=== PATIENT | female | born 1935 | race African-American/Black ===

== ENCOUNTER 2017-07-24 05:26 | Day surgery (SDC) | payer OTHER ==
[~2017-07-24] VITALS: Ht 152.4 cm; Wt 79.4 kg
[~2017-07-24 05:26] MED LIST: AMLO2.5T45 PO; GLIP5TAB12 PO; LOSA100T14 PO; METF500T4 PO; SIMV20TA6 PO
[2017-07-24] MEDS ORDERED: CYCLOPENTOLATE HCL 1% OPHTH DROPS 2ML RIGHTEYE ONE (05:40)
[2017-07-24] MEDS ORDERED: TROPICAMIDE 1% OPHTH DROPS 15ML RIGHTEYE ONE (05:40)
[2017-07-24] MEDS ORDERED: PHENYLEPHRINE HCL 10% OPHTH DROPS 5ML RIGHTEYE ONE (05:40)
[2017-07-24] MEDS ORDERED: SODIUM CHLORIDE 0.9% 1,000 ML IV SCH (06:25)
[2017-07-24] MEDS ORDERED: HYALURONATE SODIUM 14 MG/ML 0.85ML SYRINGE IO ONE ×2 (06:58→07:18)
[2017-07-24] MEDS ORDERED: BALANCED SALT IRRIG SOLN COMB1 500ML OP SCH (07:00)
[2017-07-24] MEDS ORDERED: PROPOFOL 200MG/20ML VIAL IV ONE (07:10)
[2017-07-24] MEDS ORDERED: FENTANYL CITRATE/PF 50MCG/ML 2ML VIAL ONE (07:10)
[2017-07-24] MEDS ORDERED: MIDAZOLAM HCL 2 MG/2 ML VIAL ONE (07:10)
[2017-07-24] MEDS ORDERED: LIDOCAINE HCL/PF 1% 10 MG/ML 5ML VIAL ONE (07:11)
[2017-07-24] MEDS ORDERED: HYDROMORPHONE HCL/PF 2MG/ML CPJ IV PRN (09:00)
[2017-07-24] MEDS ORDERED: ONDANSETRON HCL 4MG/2ML VIAL IV PRN (09:00)
[2017-07-24] MEDS ORDERED: LABETALOL 5MG/ML SYR 20 MG/4 ML SYRINGE IV PRN (09:00)
[2017-07-24] MEDS ORDERED: MEPERIDINE HCL/PF 25MG/ML CPJ IV PRN (09:00)
[2017-07-24] MEDS ORDERED: CIPROFLOXACIN 0.3% OPHTH SOLN 2.5ML ONE (13:31)
[2017-07-24] MEDS ORDERED: LIDOCAINE HCL 2%/EPINEPHRINE 1:100,000 20 ML VIAL INFIL ONE (13:31)
[2017-07-24] MEDS ORDERED: TETRACAINE 0.5% OPHTH DROPS 4ML ONE (13:31)
[2017-07-24] MEDS ORDERED: LIDOCAINE HCL/PF 2% 20 MG/ML 10ML VIAL ONE (13:31)
[2017-07-24] MEDS ORDERED: BALANCED SALT IRRIG SOLN 15ML ONE (13:31)
[2017-07-24] MEDS ORDERED: CYCLOPENTOLATE HCL 1% OPHTH DROPS 2ML ONE (13:31)
[2017-07-24] MEDS ORDERED: NEO/POLYMYX B SULF/DEXAMETH OPHTH OINT 3.5GM ONE (13:31)
[2017-07-24] MEDS ORDERED: PREDNISOLONE ACETATE 1% OPHTH DROPS 1ML ONE (13:31)
[2017-07-24] MEDS ORDERED: BUPIVACAINE HCL/PF 0.75% (7.5MG/ML) 10ML ONE (13:31)
== END 2017-07-24 10:00 | disposition home or self-care (01) ==
LOC: OR 05:26
PROVIDERS: ATTEND Ophthalmology
DX: H25.89 Other age-related cataract (principal); I10 Essential (primary) hypertension; E11.9 Type 2 diabetes mellitus without complications; Z79.899 Other long term (current) drug therapy
CPT/HCPCS: 66984; 82962; J2250; J3010; J3490; V2632; J2704

== ENCOUNTER → 2019-12-05 | Outpatient (CLI) | payer OTHER ==
[~2019-12-05] MED LIST changes: -LOSA100T14 PO; +LOSA100T32 PO; +METF-414 PO; -METF500T4 PO; +SIMV-43 PO; -SIMV20TA6 PO
== END | disposition home or self-care (01) ==
LOC: LAB 10:45
PROVIDERS: ATTEND Ophthalmology
DX: Z01.818 Encounter for other preprocedural examination (principal); Z11.59 Encounter for screening for other viral diseases
CPT/HCPCS: C9803; U0003

== ENCOUNTER 2019-12-13 08:45 | Inpatient (IN) | payer OTHER ==
[~2019-12-13] VITALS: Ht 165.1 cm; Wt 80.3 kg
[2019-12-13] MEDS ORDERED: ONDANSETRON HCL 4MG/2ML INJ IV STA (09:22)
[2019-12-13] MEDS ORDERED: MORPHINE SULFATE 4 MG/ML CPJ (NOT FOR IM USE) IV STA (09:22)
[2019-12-13] MEDS ORDERED: SODIUM CHLORIDE 0.9% 1,000 ML IV ONE (09:22)
[2019-12-13 09:35] LABS: BASOPHILS % 0.9 % (0.0-2.0); EOSINOPHILS % 0.9 % (0.0-5.0); HEMATOCRIT. 42.1 % (36.0-48.0); HEMOGLOBIN. 14.1 g/dL (12.0-16.0); LYMPHOCYTES % 24.9 % (20.0-50.0); MEAN CORPUSCULAR HEMOGLOBIN 31.9 pg (28.0-32.0); MEAN CORPUSCULAR VOLUME 95.3 fL (81.0-99.0); MEAN PLATELET VOLUME 9.6 fl (7.4-10.4); MONOCYTES % 10.2 % (2.0-8.0); NEUTROPHILS % 63.1 % (40.0-76.0); PLATELET 207 x1000/uL (130-400); RED BLOOD CELL COUNT 4.42 mill/uL (4.2-5.4); RED CELL DISTRIBUTION WIDTH 14.4 % (11.6-14.6)
[2019-12-13 09:42] LABS: CHLORIDE 107 mEq/L (98-107)
[2019-12-13 09:50] LABS: PARTIAL THROMBOPLASTIN TIME 29.1 sec (23.4-31.0); PROTHROMBIN TIME 10.9 sec (9.6-11.0)
[2019-12-13] MEDS ORDERED: BALANCED SALT IRRIG SOLN COMB1 500ML OP NR (10:30)
[2019-12-13] MEDS ORDERED: HYALURONATE SODIUM 10 MG/ML 0.55ML SYRINGE IO ONE (10:33)
[2019-12-13] MEDS ORDERED: PROPOFOL 200MG/20ML VIAL IV ONE (10:54)
[2019-12-13] MEDS ORDERED: MIDAZOLAM HCL 2 MG/2 ML VIAL ONE (10:54)
[2019-12-13] MEDS ORDERED: ROCURONIUM BROMIDE 10MG/ML VIAL 5ML IV ONE (10:54)
[2019-12-13] MEDS ORDERED: LIDOCAINE HCL/PF 1% 10 MG/ML 5ML VIAL ONE (10:54)
[2019-12-13] MEDS ORDERED: FENTANYL CITRATE/PF 50MCG/ML 2ML VIAL ONE (10:54)
[2019-12-13] MEDS ORDERED: EPHEDRINE SULFATE 50MG/ML VIAL ONE ×2 (11:09→11:37)
[2019-12-13] MEDS ORDERED: SODIUM CHLORIDE 0.9% 10ML VIAL ONE ×2 (11:09→11:30)
[2019-12-13] MEDS ORDERED: PHENYLEPHRINE HCL 10 MG/ML 1ML (IV VIAL) IV ONE (11:09)
[2019-12-13] MEDS ORDERED: SUCCINYLCHOLINE CHLORIDE 200MG/10ML IV ONE (11:18)
[2019-12-13] MEDS ORDERED: CEFAZOLIN SODIUM 1000MG/VIAL ONE (11:30)
[2019-12-13] MEDS ORDERED: METOCLOPRAMIDE HCL 10MG/2ML VIAL ONE (11:35)
[2019-12-13] MEDS ORDERED: ONDANSETRON HCL 4MG/2ML INJ ONE (11:35)
[2019-12-13] MEDS ORDERED: DEXAMETHASONE 4MG/ML 1ML VIAL ONE (11:36)
[2019-12-13] MEDS ORDERED: BALANCED SALT IRRIG SOLN 15ML ONE (11:39)
[2019-12-13] MEDS ORDERED: LIDOCAINE HCL/PF 2% 20 MG/ML 10ML VIAL ONE (11:39)
[2019-12-13] MEDS ORDERED: ACETYLCHOLINE CHLORIDE INTRAOCULAR SOLUTION 1:100 ELECTROLYTE DILUENT IO ONE (11:39)
[2019-12-13] MEDS ORDERED: BUPIVACAINE HCL/PF 0.75% (7.5MG/ML) 10ML ONE (11:39)
[2019-12-13] MEDS ORDERED: CIPROFLOXACIN 0.3% OPHTH SOLN 2.5ML ONE (11:39)
[2019-12-13] MEDS ORDERED: TETRACAINE 0.5% OPHTH DROPS 4ML ONE (11:39)
[2019-12-13] MEDS ORDERED: LIDOCAINE HCL 2%/EPINEPHRINE 1:100,000 20 ML VIAL INFIL ONE (11:39)
[2019-12-13] MEDS ORDERED: PREDNISOLONE ACETATE 1% OPHTH DROPS 5ML ONE (11:39)
[2019-12-13] MEDS ORDERED: HYDROMORPHONE HCL/PF 2MG/ML CPJ IV PRN (12:30)
[2019-12-13] MEDS ORDERED: ONDANSETRON HCL 4MG/2ML INJ IV PRN ×2 (12:30→17:15)
[2019-12-13] MEDS ORDERED: FAMOTIDINE 20MG/2ML VIAL IV ONE ×3 (14:00→14:15)
[2019-12-13] MEDS ORDERED: FAMOTIDINE 20MG/2ML VIAL IV SCH (14:15)
[2019-12-13] MEDS ORDERED: ACETAZOLAMIDE SODIUM 500MG/VIAL IV NR (15:30)
[2019-12-13] MEDS ORDERED: DIPHENHYDRAMINE 50MG/ML VIAL IV NR (16:30)
[2019-12-13] MEDS ORDERED: DEXAMETHASONE 4MG/ML 1ML VIAL IV NR (16:30)
[2019-12-13] MEDS ORDERED: GUAIFENESIN 200MG/10ML SUGAR FREE UDC PO PRN (17:15)
[2019-12-13] MEDS ORDERED: DOCUSATE SODIUM 100MG CAPSULE PO PRN (17:15)
[2019-12-13] MEDS ORDERED: CLONIDINE 0.1MG TABLET PO PRN (17:15)
[2019-12-13] MEDS ORDERED: TRAMADOL 50MG TABLET PO PRN (17:15)
[2019-12-13] MEDS ORDERED: MAGNESIUM/ALUMINUM HYDROXIDE/SIMETHICONE 30ML UDC PO PRN (17:15)
[2019-12-13] MEDS ORDERED: DEXTROSE 50% WATER 50ML SYRINGE IV PRN (17:15)
[2019-12-13] MEDS ORDERED: NITROGLYCERIN 0.4MG TABLET SL SL PRN (17:15)
[2019-12-13] MEDS ORDERED: IPRATROPIUM/ALBUTEROL 0.5-3(2.5)MG/3ML NEB HHN PRN (17:15)
[2019-12-13] MEDS ORDERED: ACETAMINOPHEN 325MG TABLET PO PRN ×2 (17:15)
[2019-12-13] MEDS ORDERED: ACETAMINOPHEN 500MG TABLET PO PRN (18:00)
[2019-12-13 18:40] VITALS: BP 119/48
[2019-12-13] MEDS: ASCORBIC ACID 500 MG TABLET PO SCH (20:53)
[2019-12-13] MEDS: BLOOD SUGAR DIAGNOSTIC STRIP TEST SCH (20:54)
[2019-12-13] MEDS: INSULIN LISPRO 100 UNITS/ML SUBCUT SCH (20:59)
[2019-12-13 21:00] VITALS: BP 136/66
[2019-12-13] MEDS ORDERED: ZOLPIDEM TARTRATE 5MG TABLET PO PRN (21:00)
[2019-12-13] MEDS: METOCLOPRAMIDE 10MG/10 ML UDC PO SCH (21:29)
[2019-12-14] VITALS: BP 128/60
[2019-12-14 04:00] VITALS: BP 133/65
[2019-12-14] MEDS: METOCLOPRAMIDE 10MG/10 ML UDC PO SCH ×2 (06:03→12:20)
[2019-12-14] MEDS: BLOOD SUGAR DIAGNOSTIC STRIP TEST SCH ×2 (06:03→12:10)
[2019-12-14] MEDS: INSULIN LISPRO 100 UNITS/ML SUBCUT SCH ×2 (06:48→12:21)
[2019-12-14 08:00] VITALS: BP 143/70
[2019-12-14] MEDS: ASCORBIC ACID 500 MG TABLET PO SCH (08:48)
[2019-12-14] MEDS ORDERED: ZINC SULFATE 220 MG ( 50 ) CAPSULE PO SCH (09:00)
[2019-12-14] MEDS ORDERED: PANTOPRAZOLE SODIUM 40 MG/VIAL IV SCH (09:00)
[2019-12-14] MEDS ORDERED: ENOXAPARIN 40MG/0.4ML SYR SUBCUT SCH (09:00)
[2019-12-14] MEDS ORDERED: AMLODIPINE 10MG TABLET PO SCH (09:00)
[2019-12-14 12:00] VITALS: BP 151/79
[2019-12-14 12:29] VITALS: BP 151/79
== END 2019-12-14 12:50 | disposition home or self-care (01) | DRG 117 ==
LOC: ER 09:47 → ENRESERV 14:19 → CANBEDREQ 16:06 → SUPCPDRO 17:38 → 8WST 18:15
PROVIDERS: ADMIT Internal Medicine; ATTEND Internal Medicine
PROC: 08SK3ZZ Reposition Left Lens, Percutaneous Approach (ICD-10-PCS; principal; 2019-12-13)
DX: H27.122 Anterior dislocation of lens, left eye (principal); E11.9 Type 2 diabetes mellitus without complications; I10 Essential (primary) hypertension; E78.00 Pure hypercholesterolemia, unspecified; Z79.84 Long term (current) use of oral hypoglycemic drugs; R11.2 Nausea with vomiting, unspecified; Y92.238 Other place in hospital as the place of occurrence of the external cause; T41.295A Adverse effect of other general anesthetics, initial encounter
CPT/HCPCS: 36415; 71045; 80053; 82962; 83036; 85025; 86850; 86900; 93005; 93970; 96374; 99285; C9113; J0330; J0690; J1100; J1120; J1200; J1650; J1815; J2250; J2270; J2370; J2405; J2704; J2765; J3010; J3490; J7030; J8597

== ENCOUNTER 2020-01-07 12:16 | Inpatient (IN) | payer OTHER ==
[~2020-01-07] VITALS: Ht 152.4 cm; Wt 73.5 kg
[2020-01-07] MEDS ORDERED: SODIUM CHLORIDE 0.9% 1,000 ML IV ONE (13:11)
[2020-01-07 13:23] LABS: BASOPHILS % 0.8 % (0.0-2.0); HEMOGLOBIN. 14.2 g/dL (12.0-16.0); LYMPHOCYTES % 23.8 % (20.0-50.0); MEAN CORPUSCULAR HEMOGLOBIN 31.4 pg (28.0-32.0); MEAN CORPUSCULAR VOLUME 95.4 fL (81.0-99.0); MEAN PLATELET VOLUME 9.7 fl (7.4-10.4); MONOCYTES % 14.9 % (2.0-8.0); NEUTROPHILS % 59.5 % (40.0-76.0); PLATELET 211 x1000/uL (130-400); RED BLOOD CELL COUNT 4.51 mill/uL (4.2-5.4); RED CELL DISTRIBUTION WIDTH 14.1 % (11.6-14.6)
[2020-01-07 13:26] LABS: CHLORIDE 106 mEq/L (98-107)
[2020-01-07 13:46] LABS: CLARITY URINE CLEAR (CLEAR); COLOR URINE YELLOW (YELLOW); KETONES URINE 1+ (NEGATIVE); LEUKOCYTE ESTERASE URINE NEGATIVE (NEGATIVE); NITRITE URINE NEGATIVE (NEGATIVE); OCCULT BLOOD URINE NEGATIVE (NEGATIVE); PH URINE 6.5 (4.5-8.0); PROTEIN URINE NEGATIVE (NEGATIVE); SPECIFIC GRAVITY URINE 1.012 (1.005-1.030)
[2020-01-07 15:58] LABS: D-DIMER 0.52 mg/L FEU (<0.50); INR 1.1; PROTHROMBIN TIME 11.3 sec (9.6-11.0)
[2020-01-07] MEDS ORDERED: ASPIRIN 81MG TABLET PO ONE (16:30)
[2020-01-07] MEDS ORDERED: LORAZEPAM 0.5MG TABLET PO PRN (17:45)
[2020-01-07] MEDS: AMLODIPINE 5MG TABLET PO SCH (17:45)
[2020-01-07] MEDS ORDERED: CLONIDINE 0.1MG TABLET PO PRN (17:45)
[2020-01-07] MEDS ORDERED: ONDANSETRON HCL 4MG/2ML INJ IV PRN (17:45)
[2020-01-07] MEDS ORDERED: ACETAMINOPHEN 325MG TABLET PO PRN ×2 (17:45)
[2020-01-07] MEDS ORDERED: DOCUSATE SODIUM 100MG CAPSULE PO PRN (17:45)
[2020-01-07] MEDS ORDERED: IPRATROPIUM/ALBUTEROL 0.5-3(2.5)MG/3ML NEB HHN PRN (17:45)
[2020-01-07 20:00] VITALS: BP 173/85
[2020-01-07] MEDS: SODIUM CHLORIDE 0.9% 1,000 ML IV SCH (20:06)
[2020-01-07] MEDS: HYDROCODONE/ACETAMINOPHEN 5/325MG TABLET PO PRN (22:55)
[2020-01-07 22:57] VITALS: BP 173/85
[2020-01-07] MEDS ORDERED: IOHEXOL-350 100 ML BOTTLE ONE (23:14)
[2020-01-08] MEDS: SODIUM CHLORIDE 0.9% 1,000 ML IV SCH (01:19)
[2020-01-08 04:00] VITALS: BP 126/63
[2020-01-08 06:59] LABS: HEMOGLOBIN. 12.5 g/dL (12.0-16.0); MEAN CORPUSCULAR VOLUME 96.6 fL (81.0-99.0); MEAN PLATELET VOLUME 9.7 fl (7.4-10.4); PLATELET 178 x1000/uL (130-400); RED BLOOD CELL COUNT 4.04 mill/uL (4.2-5.4); RED CELL DISTRIBUTION WIDTH 14.1 % (11.6-14.6)
[2020-01-08 07:03] LABS: CHLORIDE 108 mEq/L (98-107)
[2020-01-08 07:14] LABS: LDL CHOLESTEROL 75 mg/dL (5-100)
[2020-01-08 07:17] LABS: HDL CHOLESTEROL 69 mg/dL (40-59)
[2020-01-08 07:57] VITALS: BP 132/78
[2020-01-08] MEDS ORDERED: LOSARTAN POTASSIUM 100 MG TABLET PO SCH (09:00)
[2020-01-08] MEDS: AMLODIPINE 5MG TABLET PO SCH (09:19)
[2020-01-08 11:58] VITALS: BP 130/73
[2020-01-08] MEDS ORDERED: PRED5DRO22 LEFTEYE (12:07)
[2020-01-08] MEDS ORDERED: CIPR500S3 * (12:07)
[2020-01-08] MEDS ORDERED: KETO5DRO80 LEFTEYE (12:12)
[2020-01-08] MEDS: HYDROCODONE/ACETAMINOPHEN 5/325MG TABLET PO PRN (13:35)
[2020-01-08 14:24] VITALS: BP 130/73
[2020-01-08 21:09] LABS: PLATELET ESTIMATE NORMAL
== END 2020-01-08 15:55 | disposition home or self-care (01) | DRG 206 ==
LOC: ER 12:16 → UNDOADMIN 17:34 → 6WST 17:34 → ENRESERV 20:28
PROVIDERS: ADMIT Internal Medicine; ATTEND Internal Medicine
DX: M94.0 Chondrocostal junction syndrome [Tietze] (principal); H33.22 Serous retinal detachment, left eye; I16.0 Hypertensive urgency; E11.9 Type 2 diabetes mellitus without complications; E78.00 Pure hypercholesterolemia, unspecified; E78.5 Hyperlipidemia, unspecified; I10 Essential (primary) hypertension; R07.89 Other chest pain; M25.519 Pain in unspecified shoulder; Z90.710 Acquired absence of both cervix and uterus; Z79.899 Other long term (current) drug therapy; Z90.49 Acquired absence of other specified parts of digestive tract
CPT/HCPCS: 36415; 71045; 71275; 80048; 80053; 80061; 81003; 82962; 83880; 84484; 85025; 85379; 93005; 99285; J7030; Q9967